=== PATIENT | male | born 1985 | race Caucasian/White ===

== ENCOUNTER 2018-10-22 15:56 | Emergency (ER) | payer OTHER ==
--- NOTE | 2018-10-22 16:01 | PDOC ---
Rapid Medical Evaluation Chief Complaint: Laceration Time Seen by Provider: 10/22/18 16:00 Medical Evaluation: 10/22/18 16:00 I have performed a brief in person evaluation of the patient. The patient presents with CC: laceration HPI: Pt states he cut himself on glass to the right hand 2 hours ago. Pt's tetanus is UTD. PE: Skin: 3.5 cm lac to MCP on right hand HEENT: Oropharynx clear Lungs: Mild expiratory wheezing Heart: RRR MS: Moves all extremities Neuro: Alert Psych: Appropriate affect The patient will proceed to [facility] for further evaluation. Discharge Disposition - Diagnosis Laceration - Referrals - Patient Instructions - Post Discharge Activity
[2018-10-22 16:02] VITALS: BP 134/85; PULSE 91; TEMP 98.6; BMI 25.8
--- NOTE | 2018-10-22 17:21 | PDOC ---
History of Present Illness <Karolina Jha - Last Filed: 10/22/18 18:00> - History of Present Illness Initial Comments: 10/22/18 17:19 33-year-old male without comorbidities presents for evaluation on the right hand. He states while doing work in his home he lacerated his hand on a shard of broken window. He is current on tetanus <Harry Hameed - Last Filed: 10/22/18 18:12> - General Chief Complaint: Laceration Stated Complaint: RT HAND INJURY Time Seen by Provider: 10/22/18 16:00 Past History <Karolina Jha - Last Filed: 10/22/18 18:00> - Past Medical History COPD: No - Suicide/Smoking/Psychosocial Hx Smoking History: Never smoked Have you smoked in the past 12 months: No Information on smoking cessation initiated: No Hx Alcohol Use: No Drug/Substance Use Hx: No <Harry Hameed - Last Filed: 10/22/18 18:12> - Past Medical History Allergies/Adverse Reactions: Allergies Allergy/AdvReac Type Severity Reaction Status Date / Time No Known Allergies Allergy Verified 10/22/18 16:02 Home Medications: Ambulatory Orders NK [No Known Home Medication] 10/22/18 Review of Systems - Review of Systems Integumentary: Yes: See HPI <Harry Hameed - Last Filed: 10/22/18 18:12> *Physical Exam - Vital Signs Last Vital Signs Temp Pulse Resp BP Pulse Ox 98.6 F 91 H 18 134/85 99 10/22/18 15:58 10/22/18 15:58 10/22/18 15:58 10/22/18 15:58 10/22/18 15:58 <Karolina Jha - Last Filed: 10/22/18 18:00> - Vital Signs Last Vital Signs Temp Pulse Resp BP Pulse Ox 98.6 F 91 H 18 134/85 99 10/22/18 15:58 10/22/18 15:58 10/22/18 15:58 10/22/18 15:58 10/22/18 15:58 - Physical Exam Comments: 10/22/18 17:19 Left hand skin color and temperature are normal. There is an L-shaped laceration on the skin overlying the proximal aspect of the fifth metacarpal on the ulnar aspect of the hand. There are no gross sensorimotor deficit subcutaneous fat is exposed. He is neurovascularly intact. <Harry Hameed - Last Filed: 10/22/18 18:12> Procedures - Laceration/Wound Repair Right Dorsal Wound Length: to 2.5 cm Wound Explored: clean Wound's Depth, Shape: superficial Irrigated w/ Saline: Yes Anesthesia: 1% Lidocaine Amount of Anesthetic (ccs): 5 Wound Debrided: minimal Wound Repaired With: Sutures Suture Size/Type: 5:0, proline Number of Sutures: 7 Layer Closure: No Sterile Dressing Applied: Yes Splint Applied: No <Karolina Jha - Last Filed: 10/22/18 18:00> Medical Decision Making - Medical Decision Making 10/22/18 17:44 No FB on raidograph today <Harry Hameed - Last Filed: 10/22/18 18:12> *DC/Admit/Observation/Transfer <Karolina Jha - Last Filed: 10/22/18 18:00> - Discharge Dispostion Decision to Admit order: No <Harry Hameed - Last Filed: 10/22/18 18:12> Diagnosis at time of Disposition: Laceration - Discharge Dispostion Disposition: HOME Condition at time of disposition: Stable - Referrals Referrals: Davi Barba MD [Staff Physician] - - Patient Instructions Printed Discharge Instructions: DI for Laceration Repair Additional Instructions: Return to the emergency room for any indication of infection such as redness, pain, increasing swelling, or drainage in the area. Leave the dressing on that was applied in the emergency room for the next 48 hours. Remove the dressing wash her hand with soap and water and leave the area open to air and she while working which then it should be covered with a dry sterile dressing. Sutures removed in no less than 10 days. He may follow-up with hand surgery for wound checks in one to 2 days and suture removal or return to the emergency room in 10 days for suture removal sooner if problems develop. Tylenol and Motrin as directed for pain.
== END 2018-10-22 18:15 | disposition home or self-care (01) ==
LOC: JER 15:56 → JERFT 15:56
PROC: 0HQFXZZ Repair Right Hand Skin, External Approach (ICD-10-PCS; principal; 2018-10-22)
DX: S61.411A Laceration without foreign body of right hand, initial encounter (principal); W25.XXXA Contact with sharp glass, initial encounter; Y93.89 Activity, other specified; Y92.89 Other specified places as the place of occurrence of the external cause
CPT/HCPCS: 73130-TC-RT-FY; 99282-25

== ENCOUNTER 2018-11-05 09:17 | Emergency (ER) | payer OTHER ==
[2018-11-05 09:36] VITALS: BP 126/99; PULSE 52; TEMP 97.9; BMI 25.7
--- NOTE | 2018-11-05 10:41 | PDOC ---
Suture Removal/Wound Check HPI - History of Present Illness Chief Complaint: Suture/Staple Removal(Here) Stated Complaint: STITCH REMOVAL Time Seen by Provider: 11/05/18 09:53 History Source: Yes: Patient Exam Limitations: Yes: No Limitations Treated at: [facility] ED - Previous ED Treatment Type of procedure performed on last visit: Yes: Laceration Repair Tetanus Immunization: Yes: Up to Date Antibiotics Prescribed: No Past History - Travel Traveled outside of the country in the last 30 days: No Close contact w/someone who was outside of country & ill: No - Past Medical History Allergies/Adverse Reactions: Allergies Allergy/AdvReac Type Severity Reaction Status Date / Time No Known Allergies Allergy Verified 11/05/18 09:33 Home Medications: Ambulatory Orders Clindamycin [Cleocin -] 300 mg PO TID #21 capsule 11/05/18 COPD: No Other medical history: DENIES - Immunization History Immunization Up to Date: (UNKNOWN) - Suicide/Smoking/Psychosocial Hx Smoking History: Current every day smoker Have you smoked in the past 12 months: No Information on smoking cessation initiated: No Hx Alcohol Use: No Drug/Substance Use Hx: No Suture Removal/Wound Check PE - Physical Exam Laceration/Wound Check Symptoms: reports: Redness, Persistent Location of Laceration/Wound: right: Finger, left: Hand (dorsal ulnar L hand. 4 simple interrupted sutures in place. States three fell out. now with redness around the suture line) *Review of Systems - Review of Systems Constitutional: No: Chills, Fever, Weakness Integumentary: Yes: Erythema, Rash All Other Systems: Reviewed and Negative *Physical Exam - Vital Signs Last Vital Signs Temp Pulse Resp BP Pulse Ox 97.9 F 52 L 18 126/99 99 11/05/18 09:33 11/05/18 09:33 11/05/18 09:33 11/05/18 09:33 11/05/18 09:33 Medical Decision Making - Medical Decision Making 11/05/18 10:51 the patient is a 33-year-old male, smoker with no past medical history, who presents to the ER today for suture removal to his left hand. He states that he has been using a and D ointment on it and that a couple of the stitches fell out prior to arrival in the ER. He states that the wound is now red around the edges. Denies fevers, chills, pain to the hand, numbness and tingling. A/P: Suture removal, cellulitis On exam patient able to fully flex and extend the hand. 4 simple interrupted sutures remain in the wound. Wound is wet with poor healing, cellulitis to the edges of the laceration Will start patient on clindamycin Refer to hand surgery Sutures removed as they are not effective DC home I discussed the physical exam findings, ancillary test results and final diagnoses with the patient. I answered all of the patient's questions. The patient was satisfied with the care received and felt comfortable with the discharge plan and treatment plan. The Patient agrees to follow up with the primary care physician/specialist within 24-72 hours. Return precautions were given. *DC/Admit/Observation/Transfer Diagnosis at time of Disposition: Visit for suture removal Cellulitis Qualifiers: Site of cellulitis: extremity Site of cellulitis of extremity: upper extremity Laterality: left Qualified Code(s): L03.114 - Cellulitis of left upper limb - Discharge Dispostion Disposition: HOME Condition at time of disposition: Stable Decision to Admit order: No - Prescriptions Prescriptions: Clindamycin [Cleocin -] 300 mg PO TID #21 capsule - Referrals Referrals: Wisam Rahman MD [Staff Physician] - Davi Barba MD [Staff Physician] - - Patient Instructions Printed Discharge Instructions: DI for Cellulitis -- Adult, DI for Suture Removal Additional Instructions: You had your sutures/bridget removed today. Let the area dry out. There is an infection around the laceration. Please take the clindamycin three times a day for one week. Take with food Avoid soaking the area with water for 1 more week as to what the wound fully heal. Follow-up with hand surgery for further management Return to the emergency department if you develop fevers, drainage from the site , increased pain, or have any changes in your symptoms. - Post Discharge Activity Forms/Work/School Notes: Back to Work
== END 2018-11-05 10:55 | disposition home or self-care (01) ==
LOC: JERFT 09:17
DX: Z48.02 Encounter for removal of sutures (principal); L03.114 Cellulitis of left upper limb; F17.210 Nicotine dependence, cigarettes, uncomplicated
CPT/HCPCS: 99281-25